=== PATIENT | female | born 1985 | race Caucasian/White ===

== ENCOUNTER → 2022-06-21 | Outpatient (CLI) | payer OTHER, SELFPAY ==
--- NOTE | 2022-06-21 09:00 | VDLE_ITS ---
Reason For Study: Chronic venous insufficiency RIGHT LEFT CFV is compressible, spontaneous, phasic, CFV is compressible, spontaneous, phasic, competent and demonstrates normal competent, and demonstrates normal augmentation. augmentation. FV is compressible, spontaneous, phasic, FV is compressible, spontaneous, phasic, competent and demonstrates normal competent and demonstrates normal augmentation. augmentation. POP V is compressible, spontaneous, phasic, POP V is compressible, spontaneous, phasic, competent and demonstrates normal competent and demonstrates normal augmentation. augmentation. T/P Trunk is compressible. T/P Trunk is compressible. PTV is compressible. PTV is compressible. RT PerV is compressible. LT PerV is compressible. SFJ is competent and measures 0.64 x 0.76 cm. GSV and SSV are occluded s/p EVLA. GSV proximal thigh measures 0.40 x 0.41 cm. GSV above knee is competent. GSV at knee measures 0.37 x 0.37 cm. GSV below knee is INCOMPETENT for greater than 0.5 seconds. SSV at junction is competent and measures 0.25 x 0.27 cm. Procedure This is a venous duplex using B-mode, color flow and spectral Doppler. Exam performed in department. VL/Venous Duplex US - Mario Alberto Extrem Interpretation Summary Deep veins of the lower extremities are bilaterally patent and compressible seg mentally. There is no evidence of deep vein thrombosis on either side. Valvular competence appears in tact within the proximal deep venous systems bilaterally. The right great saphenous vein appear s patent and compressible segmentally. The right sapheno-femoral junction is competent . The right great saphenous vein appears competent above the knee. The right great saphenous vein appears incompetent below the knee. The right small saphenous vein is patent and competent. The lef t great saphenous vein and small saphenous vein are occluded, consistent with a prior endothermal ablation procedure. Ordering Physician: David Crowe Referring Physician: Carmen Roldan Performed By: Maura Prajapati RVT
== END | disposition home or self-care (01) ==
LOC: CVS 08:59
PROVIDERS: PCP Physician Assistant; Visit Provider Surgery
DX: I87.2 Venous insufficiency (chronic) (peripheral) (principal)
CPT/HCPCS: 93970